=== PATIENT | male | born 2000 | race Caucasian/White ===

== ENCOUNTER 2022-01-23 15:11 | Emergency (ER) | payer OTHER ==
[~2022-01-23] VITALS: Ht 175.3 cm; Wt 68.7 kg
[2022-01-23 20:16] VITALS: BP 125/79
== END 2022-01-23 20:22 | disposition home or self-care (01) ==
LOC: M ED 15:11
DX: S22.31XA Fracture of one rib, right side, initial encounter for closed fracture (principal); F17.200 Nicotine dependence, unspecified, uncomplicated; F12.10 Cannabis abuse, uncomplicated; F10.10 Alcohol abuse, uncomplicated; Y92.9 Unspecified place or not applicable; Y93.9 Activity, unspecified; Y99.9 Unspecified external cause status